=== PATIENT | male | born 1970 | race Caucasian/White ===

== ENCOUNTER 2024-10-08 14:11 | Emergency (ER) | payer OTHER ==
[2024-10-08] MEDS: HYDROmorphone 2 MG/ML Syringe IVPUSH ONE (14:23)
[2024-10-08] MEDS: Ondansetron 4 MG Tab.DIS PO ONE (14:40)
[2024-10-08] MEDS: Ketorolac 30 MG/ML SDV IVPUSH ONE (14:53)
== END 2024-10-08 16:04 | disposition home or self-care (01) ==
LOC: LB.ED 14:11
DX: S42.322A Displaced transverse fracture of shaft of humerus, left arm, initial encounter for closed fracture (principal); Z79.899 Other long term (current) drug therapy; W11.XXXA Fall on and from ladder, initial encounter; Y93.D9 Activity, other involving arts and handcrafts
CPT/HCPCS: 29105; 73060; 73070; 96374; 96375; 99283; 99284; J1171; J1885; Q0162